=== PATIENT | male | born 1980 | race Caucasian/White ===

== ENCOUNTER 2020-09-08 17:17 | Outpatient (CLI) | payer OTHER | END 2020-09-08 17:18 | disposition home or self-care (01) | LOC: COV 17:17 | PROVIDERS: ATTEND Family Medicine | DX: R09.81 Nasal congestion (principal); Z20.828 Contact with and (suspected) exposure to other viral communicable diseases ==

== ENCOUNTER 2021-01-23 13:36 | Emergency (ER) | payer OTHER ==
--- NOTE | 2021-01-23 14:14 | ED Physician Documentation ---
PD HPI LOWER EXT INJURY - Stated complaint Stated Complaint: RT FT INJ - Chief complaint Chief Complaint: Trauma Ext - History obtained from History obtained from: Patient - History of Present Illness Timing - onset: Yesterday - Additional information Additional information: He slipped and pivoted forward on his right foot and he felt cracking in the right foot and has proximal foot pain. No other injuries. Review of Systems Constitutional: reports: Reviewed and negative Throat: reports: Reviewed and negative Cardiac: reports: Reviewed and negative Respiratory: reports: Reviewed and negative PD PAST MEDICAL HISTORY - Past Medical History Past Medical History: No - Past Surgical History Past Surgical History: No - Present Medications Home Medications: Ambulatory Orders Medication Instructions Recorded Confirmed No Known Home Medications 01/23/21 01/23/21 - Allergies Allergies/Adverse Reactions: Allergies Allergy/AdvReac Type Severity Reaction Status Date / Time Penicillins Allergy Anaphylaxis Verified 01/23/21 13:49 - Social History Does the pt smoke?: No Smoking Status: Never smoker Does the pt drink ETOH?: No Does the pt have substance abuse?: No - Immunizations Immunizations are current?: Yes PD ED PE NORMAL - Vitals Vital signs reviewed: Yes - General General: Alert and oriented X 3, No acute distress - Extremities Extremities: Other (Tender to the midfoot with swelling and pain with range of motion of the third fourth and fifth toes. No deformity. No ankle tenderness.) - Neuro Neuro: Alert and oriented X 3, Normal speech Results - Vitals Vitals: Vital Signs - 24 hr 01/23/21 13:50 Temperature 36.5 C Heart Rate 84 Respiratory 19 Rate Blood Pressure 149/93 H O2 Saturation 97 Oxygen O2 Source Room air Procedures - Splint (location) RLE Splint applied by: Tech Type of splint: Fiberglass, Short leg, Posterior Other: Patient tolerated well, No complications, Neurovascular intact, Crutches provided Departure - Departure Disposition: 01 Home, Self Care Clinical Impression: Fracture of third metatarsal bone Qualifiers: Encounter type: initial encounter Fracture type: closed Fracture alignment: nondisplaced Laterality: right Qualified Code(s): S92.334A - Nondisplaced fracture of third metatarsal bone, right foot, initial encounter for closed fracture Condition: Good Record reviewed to determine appropriate education?: Yes Instructions: ED Fx Foot Follow-Up: [facility] [Provider Group] Comments: Keep your foot elevated is much as possible. Keep the splint on and dry, do not remove it. Follow-up with an orthopedist within the week, the local office is listed on this form and you can call Monday.
--- NOTE | 2021-01-23 14:16 | XRAY Report ---
PROCEDURE: Foot 3 View RT INDICATIONS: Trauma TECHNIQUE: 3 views of the foot were acquired. COMPARISON: None. FINDINGS: Bones: Fracture near the base of the third metacarpal bone without displacement, seen only on the obl ique view. No suspicious bony lesions. Soft tissues: No tibiotalar joint effusion. Achilles tendon appears normal. Enthesopathy of the Ac hilles tendon insertion. Mild soft tissue swelling of the dorsal midfoot. IMPRESSION: Fracture of the third metacarpal bone, near its base. No evidence of displacement. Reviewed by: Bryant Stern on 01/23/2021 1:15 PM RAMON Approved by: Bryant Stern on 01/23/2021 1:15 PM RAMON Station ID: [id number]
[2021-01-23 14:49] VITALS: BP 140/85
--- OUTSIDE RECORDS SUMMARY | 2021-01-27 02:32 | EXTERNAL MEDICAL SUMMARY RPT | Continuity of Care Document ---
:1980 Demographics Phone Unavailable Preferred Language Unknown Marital Status Unknown Catholic Affiliation Unknown Race Unknown Ethnic Group Unknown Author Organization [facility] Address [address] [id number] Phone Social History date description facility [id number]
== END 2021-01-23 14:50 | disposition home or self-care (01) ==
LOC: ED 13:36
DX: S92.334A Nondisplaced fracture of third metatarsal bone, right foot, initial encounter for closed fracture (principal); W01.0XXA Fall on same level from slipping, tripping and stumbling without subsequent striking against object, initial encounter
CPT/HCPCS: 29515; 99283